=== PATIENT | male | born 1965 | race Caucasian/White ===

== ENCOUNTER 2018-04-19 07:37 | Inpatient (IN) | payer OTHER ==
[~2018-04-19] VITALS: Ht 185.4 cm; Wt 87.5 kg
--- NOTE | 2018-04-19 07:45 | NUR ---
[id number], [id number] FROM HOME C/O LOWER BACK PAIN WORSE ON THE LEFT RADIATING DOWN FRONT OF LEG GRADUALLY WORSENING OVER LAST 3 DAYS; DENIES TRAUMA. RR IS EVEN AND UNLABORED WITH NAD NOTED. SKIN IS SKIN WARM AND DRY. FEBRILE TEMP OF 102.8. DR ARAUJO AT FOR EVAL.
[2018-04-19] MEDS ORDERED: MORPHINE SULFATE INJ 4 MG/ML DISP.SYRIN ONE (07:50)
[2018-04-19] MEDS ORDERED: ONDANSETRON HCL/PF 4 MG/2 ML VIAL ONE (07:50)
[2018-04-19] MEDS ORDERED: KETOROLAC TROMETHAMINE INJ 30 MG/ML VIAL ONE (07:51)
[2018-04-19] MEDS ORDERED: ACETAMINOPHEN ES 500 MG TABLET ONE (07:51)
[2018-04-19] MEDS ORDERED: ACETAMINOPHEN ES 500 MG TABLET PO ONE (08:00)
[2018-04-19] MEDS ORDERED: KETOROLAC TROMETHAMINE INJ 30 MG/ML VIAL IV ONE (08:00)
[2018-04-19] MEDS ORDERED: MORPHINE SULFATE INJ 2 MG/ML DISP.SYRIN IV ONE (08:00)
[2018-04-19] MEDS ORDERED: IV NS 0.9% 1,000 ML BAG IV ONE ×2 (08:00→09:00)
[2018-04-19 08:24] LABS: APPEARANCE,URINE SL CLOUDY (CLEAR); BILIRUBIN,URINE 1+ (NEGATIVE); BLOOD, URINE NEGATIVE Ery/uL (NEGATIVE); COLOR,URINE DARK YELLO (YELLOW); KETONES,URINE NEGATIVE (NEGATIVE); LEUKOCYTE ESTERASE ,URINE NEGATIVE (NEGATIVE); NITRITE, URINE NEGATIVE (NEGATIVE); PROTEIN,URINE 1+ mg/dl (NEGATIVE); UGLUCOSE NEGATIVE (NEGATIVE); UROBILINOGEN,URINE 0.2 EU/dL (0.2)
[2018-04-19 08:27] LABS: INR 0.97 (0.87-1.13)
[2018-04-19 08:29] LABS: BASOPHILS % (AUTO) 0.1 % (0.0-2.0); EOSINOPHILS % (AUTO) 0.2 % (0.0-6.0); HEMATOCRIT 45 % (39-51); HEMOGLOBIN 15.8 g/dL (13.5-17.5); LYMPHOCYTES # (AUTO) 1.3 /CMM (0.8-4.8); LYMPHOCYTES % (AUTO) 9.8 % (20.0-44.0); MEAN CORPUSCULAR HEMOGLOBIN 31 PG (26.0-33.0); MEAN CORPUSCULAR HGB CONC 35 g/dl (31.0-36.0); MEAN CORPUSCULAR VOLUME 89 fL (80-96); MONOCYTES # (AUTO) 0.8 /CMM (0.1-1.30); MONOCYTES % (AUTO) 6.5 % (2.0-12.0); NEUTROPHILS # (AUTO) 10.7 /CMM (1.8-8.9); NEUTROPHILS % (AUTO) 83.4 % (43.0-81.0); PLATELET COUNT (AUTO) 239 /CMM (150-450); RDW COEFFICIENT OF VARIATION 12.3 (11.5-15.0); RED BLOOD CELL COUNT(AUTO) 5.06 MIL/uL (4.5-6.0); WHITE BLOOD COUNT (AUTO) 12.8 K/uL (4.3-11.0)
[2018-04-19 08:30] LABS: CALCIUM, SERUM 9.1 mg/dL (8.5-10.1); CREATININE 1.2 mg/dL (0.6-1.3); POTASSIUM 3.7 mmol/L (3.5-5.1)
[2018-04-19 08:37] LABS: ALBUMIN 3.5 g/dL (3.4-5.0); BILIRUBIN,DIRECT 0.1 mg/dL (0.0-0.2); BILIRUBIN,TOTAL 0.7 mg/dL (0.2-1.0)
[2018-04-19 08:42] LABS: RBC,URINE 0-2 /HPF (0-2)
[2018-04-19 08:43] LABS: BACTERIA,URINE Few /HPF (None Seen); MUCUS,URINE Few /LPF (None Seen); SQUAMOUS EPITHELIAL CELL,UR Rare /HPF (None Seen)
[2018-04-19] MEDS ORDERED: LORAZEPAM INJ 2 MG/ML VIAL IV ONE (09:00)
[2018-04-19] MEDS ORDERED: LORAZEPAM INJ 2 MG/ML VIAL ONE (09:21)
[2018-04-19] MEDS ORDERED: VALA500T36 PO (09:58)
--- NOTE | 2018-04-19 10:16 | NUR ---
PAGED EPIC -- COIL CONNECTOR IS DR KNOWLES.
[2018-04-19] MEDS ORDERED: PIPERACILLIN /TAZOBACTAM 3.375 G in IV D5W 50 ML IV ONE (10:30)
[2018-04-19] MEDS ORDERED: VANCOMYCIN 1 GM in IV D5W 250 ML IV ONE (10:30)
--- NOTE | 2018-04-19 10:45 | NUR ---
REPORT GIVEN TO FRANKY VALENTINE FOR MIRI MS 315-1
--- NOTE | 2018-04-19 11:30 | NUR ---
MSRN OPENING NOTES. PT RECEIVED A&0X3. PT TOLERATING ROOM AIR WITHOUT DISTRESS. PT REPORTING MUSCLE CRAMPS AND MODERATE PAIN TO L SCIATIC. PT A FEBRILE AT THIS TIME. PT WITH IVC AT L AC INTACT AND OPERATIONAL. PT BELONGINGS LIST CHECKED. SKIN INTACT. PT BED IN LOWEST LOCKED POSITION WITH HANDRAILSX2 AND CALL RODRIGUES WITHIN REACH. PT BRIEFED ON TODAY'S POC AND IS WITHOUT CONCERN OR COMPLAINT.
[2018-04-19] MEDS ORDERED: ONDANSETRON HCL/PF 4 MG/2 ML VIAL IVP PRN (12:00)
[2018-04-19] MEDS ORDERED: Z GUARD REMEDY 2 OZ OINT TP PRN (12:00)
[2018-04-19] MEDS ORDERED: MAG HYDROX/AL HYDROX/SIMETH 30 ML UDC PO PRN (12:00)
[2018-04-19] MEDS ORDERED: ZOLPIDEM TARTRATE 5 MG TABLET PO PRN (12:00)
[2018-04-19] MEDS ORDERED: MAGNESIUM HYDROXIDE 30 ML UDC PO PRN (12:00)
--- NOTE | 2018-04-19 12:00 | NUR ---
LOUISE NOTES. PT SIGNED CONSENT FOR INFORMATION RELEASE AND PAPER FAXED TO [facility].
[2018-04-19 12:42] VITALS: BP 118/73
[2018-04-19] MEDS: HYDROCODONE/APAP 5/325MG 1 EACH TABLET PO PRN (12:49)
[2018-04-19] MEDS: IV NS 0.9% 1,000 ML IV PRN (12:50)
[2018-04-19 13:00] LABS: IRON, SERUM 25 ug/dl (50-175); TOTAL IRON BINDING CAPACITY 291 ug/dl (250-450)
[2018-04-19 13:06] LABS: CHOLESTEROL 187 mg/dL (<200); HDL CHOLESTEROL 35 mg/dL (40-60); LDL 124 mg/dL (0-99); TRIGLYCERIDES 161 mg/dL (30-150)
[2018-04-19] MEDS ORDERED: BISACODYL (5 MG) 5 MG TABLET.DR PO PRN (14:00)
[2018-04-19] MEDS ORDERED: LORAZEPAM 0.5 MG TABLET PO PRN (14:00)
[2018-04-19] MEDS: POLYETHYLENE GLYCOL 3350 17 GM POWD.PACK PO SCH ×2 (14:00→21:55)
[2018-04-19] MEDS ORDERED: BISACODYL SUPP (10 MG) 10 MG/SUPP.RECT SUPP.RECT RC PRN (14:00)
[2018-04-19] MEDS: SENNOSIDES/DOCUSATE SODIUM 1 TAB TABLET PO SCH (14:00)
[2018-04-19 15:03] LABS: RETICULOCYTE COUNT 0.9 % (0.6-2.5)
[2018-04-19] MEDS: CYCLOBENZAPRINE 10 MG TABLET PO PRN (15:30)
--- NOTE | 2018-04-19 16:00 | NUR ---
MSRN NOTES. PT WITH MODERATE/SEVERE PAIN, WINDOWS SECURITY ANALYST ELENI REQUESTING MS 2MG PRN Q6, ORDERS PLACED.
--- NOTE | 2018-04-19 17:00 | NUR ---
MSRN NOTES. PT SHIVERING WITH TEMP 99.1, COOLING MEASURE IN PLACE.
[2018-04-19] MEDS: ACETAMINOPHEN 325 MG TABLET PO PRN (17:43)
[2018-04-19] MEDS: MORPHINE SULFATE INJ 2 MG/ML DISP.SYRIN IV PRN ×2 (17:43→18:09)
--- NOTE | 2018-04-19 18:44 | NUR ---
MSRN CLOSING NOTES.PT TOLERATING ROOM AIR WITHOUT DISTRESS, PT REPORTS CURRENT PAIN MANAGEMENT WITH PRN MS [place]. PT WITH COOLING MEASURES IN PLACE. PT NOW WITH IVC AT R HAND G#22 INTACTA ND OPERATIONAL WITH FLUIDS PER RX. PT BED IN LOWEST LOCKED POSITION WITH HANDRAILSX2 AND CALL RODRIGUES WITHIN REACH. ALL DAY NURSE DUTIES ATTENDED TO AND PT IS WITHOUT CONCERN OR COMPLAINT.
--- NOTE | 2018-04-19 19:20 | NUR ---
MS RN OPENING NOTES PT RECEIVED RESTING IN BED, A & O X 3, TOLERATING ROOM AIR WITHOUT DISTRESS. PT REPORTING MILD PAIN TO L SCIATICA & LEFT LEG. PT HAS TEMP OF 99.4 AT THIS TIME. PT REFUSES COOLING MEASURES @ THIS TIME. REMOVED EXTRA CLOTHING & BLANKETS. PT WITH IVF AT RIGHT HAND, INTACT AND OPERATIONAL RUNNING WITH NS ORDERED. SKIN INTACT. USES URINAL. PT BED IN LOWEST LOCKED POSITION WITH HANDRAILS X 2 AND CALL RODRIGUES WITHIN REACH. WILL MONITOR CLOSELY.
[2018-04-19 20:00] VITALS: BP 125/70
[2018-04-19] MEDS: FLUCONAZOLE (100 MG) 100 MG TABLET PO SCH (21:54)
[2018-04-19] MEDS: PIPERACILLIN /TAZOBACTAM 3.375 G in IV D5W 50 ML IV SCH (21:54)
[2018-04-19] MEDS: NYSTATIN (PYXIS) 500,000 UNIT/5 ML ORAL.SUSP PO SCH (21:54)
[2018-04-20] MEDS: ACETAMINOPHEN 325 MG TABLET PO PRN ×2 (00:11→06:14)
--- NOTE | 2018-04-20 00:11 | NUR ---
PRN TYLENOL GIVEN RECHECKED BODY TEMP, NOTED TO BE 102.1. REMOVED EXTRA CLOTHING, BLANKETS, ICE PACKS PROVIDED, COLD SPONGING STARTED. PRN TYLENOL GIVEN. DR OLIVAS ON THE FLOOR, MAKING ROUND, MADE MD AWARE. WILL MONITOR CLOSELY & RECHECK TEMP ACCORDINGLY.
--- NOTE | 2018-04-20 01:30 | NUR ---
RECHECKED BODY TEMP PT'S BODY TEMP NOTED TO BE 101 @ THIS TIME. COOLING MEASURES STILL IN PLACE. COLD SPONGING BEING DONE. MONITORING CLOSELY.
[2018-04-20] MEDS: MORPHINE SULFATE INJ 2 MG/ML DISP.SYRIN IV PRN ×2 (02:53→08:45)
[2018-04-20] MEDS: IV NS 0.9% 1,000 ML IV PRN ×2 (02:53→17:32)
--- NOTE | 2018-04-20 02:53 | NUR ---
PRN MORPHINE GIVEN PT HAD C/O PAIN TO LEFT LEG/HIP 06/18, REQUESTED TO TAKE MORPHINE @ THIS TIME. VSS. PRN MORPHINE GIVEN, WILL REASSESS FOR ASSESSMENT.
--- NOTE | 2018-04-20 03:00 | NUR ---
RECHECKED BODY TEMP BODY TEMP NOTED TO BE 99.1 @ THIS TIME. PT STATED HE FEELS BETTER @ THIS TIME. OBSERVING CLOSELY.
[2018-04-20] MEDS: PIPERACILLIN /TAZOBACTAM 3.375 G in IV D5W 50 ML IV SCH ×3 (06:10→17:29)
--- NOTE | 2018-04-20 06:14 | NUR ---
PRN TYLENOL GIVEN CHECKED BODY TEMP, 100.2, PRN TYLENOL GIVEN ORDERED. WILL RECHECK BODY TEMP & WILL ENDORSE TO AM RN TO F/U.
--- NOTE | 2018-04-20 06:55 | NUR ---
MS RN CLOSING NOTES PT IS RESTING IN BED, A & O X 3, TOLERATING ROOM AIR WITHOUT DISTRESS. PT REPORTING MODERATE PAIN TO LEFT HIP & LEG. MORPHINE WAS GIVEN ORDERED. BODY TEMP WAS 100.2, REMOVED EXTRA CLOTHING & BLANKETS, PRN TYLENOL WAS GIVEN. PT WITH IVF AT RIGHT HAND, INTACT AND OPERATIONAL RUNNING WITH NS ORDERED. SKIN INTACT. USES URINAL. PT BED IN LOWEST LOCKED POSITION WITH HANDRAILS X 2 AND CALL RODRIGUES WITHIN REACH. WILL ENDORSE TO AM RN FOR CONTINUITY OF CARE.
[2018-04-20 07:47] LABS: BASOPHILS % (AUTO) 0.2 % (0.0-2.0); EOSINOPHILS % (AUTO) 0.3 % (0.0-6.0); HEMATOCRIT 40 % (39-51); HEMOGLOBIN 13.7 g/dL (13.5-17.5); LYMPHOCYTES # (AUTO) 1.6 /CMM (0.8-4.8); LYMPHOCYTES % (AUTO) 15.2 % (20.0-44.0); MEAN CORPUSCULAR HEMOGLOBIN 30 PG (26.0-33.0); MEAN CORPUSCULAR HGB CONC 34 g/dl (31.0-36.0); MEAN CORPUSCULAR VOLUME 89 fL (80-96); MONOCYTES % (AUTO) 9.3 % (2.0-12.0); NEUTROPHILS # (AUTO) 8.1 /CMM (1.8-8.9); PLATELET COUNT (AUTO) 231 /CMM (150-450); RDW COEFFICIENT OF VARIATION 12.3 (11.5-15.0); RED BLOOD CELL COUNT(AUTO) 4.52 MIL/uL (4.5-6.0); WHITE BLOOD COUNT (AUTO) 10.7 K/uL (4.3-11.0)
[2018-04-20 07:48] LABS: CALCIUM, SERUM 8.5 mg/dL (8.5-10.1); CREATININE 0.9 mg/dL (0.6-1.3); MAGNESIUM 1.8 mg/dL (1.8-2.4); PHOSPHORUS 2.6 mg/dL (2.5-4.9); POTASSIUM 3.7 mmol/L (3.5-5.1)
--- NOTE | 2018-04-20 07:49 | NUR ---
MS RN OPENING NOTES RECEIVED PT LAYING IN BED WITH HOB ELEVATED, RESTING COMFORTABLY. PT IS EASILY AROUSABLE. RESPIRATIONS ARE EVEN AND UNLABORED, NOT IN ANY DISTRESS NOTED. PT DENIES ANY PAIN AT THIS TIME, NO C/O SOB, N/V. IV INTACT, NO INFILTRATION NOTED. DRESSING KEPT CLEAN AND DRY. SAFETY MEASURES ARE IN PLACE. INSTRUCTED PT TO USE CALL LIGHT WHEN ASSISTANCE IS NEEDED, CALL LIGHT IS LEFT WITHIN REACH. WILL CONTINUE TO MONITOR THROUGHOUT SHIFT FOR CONTINUITY OF CARE.
[2018-04-20 08:00] VITALS: BP 127/74
[2018-04-20] MEDS: NYSTATIN (PYXIS) 500,000 UNIT/5 ML ORAL.SUSP PO SCH ×3 (08:43→17:29)
[2018-04-20] MEDS: CYCLOBENZAPRINE 10 MG TABLET PO PRN (08:43)
[2018-04-20] MEDS: VALACYCLOVIR HCL 500 MG TABLET PO SCH (08:43)
[2018-04-20] MEDS: FLUCONAZOLE (100 MG) 100 MG TABLET PO SCH (08:43)
[2018-04-20] MEDS: SENNOSIDES/DOCUSATE SODIUM 1 TAB TABLET PO SCH (08:44)
[2018-04-20] MEDS: HYDROCODONE/APAP 5/325MG 1 EACH TABLET PO PRN (11:02)
[2018-04-20] MEDS: PANTOPRAZOLE 40 MG TABLET.DR PO SCH (13:48)
[2018-04-20] MEDS: GABAPENTIN 300 MG CAPSULE PO SCH ×2 (13:48→17:29)
[2018-04-20] MEDS: KETOROLAC TROMETHAMINE INJ 30 MG/ML VIAL IV PRN ×2 (13:49→19:30)
[2018-04-20 16:00] VITALS: BP 139/77
[2018-04-20] MEDS ORDERED: GADODIAMIDE 2.5 MMOL/5 ML VIAL IJ ONE (16:36)
[2018-04-20] MEDS: LACTOBACILLUS RHAMNOSUS GG 1 EACH CAP.SPRINK PO SCH (17:29)
--- NOTE | 2018-04-20 17:44 | NUR ---
MS RN NOTES DR. KNOWLES MADE AWARE OF MRI RESULTS.
--- NOTE | 2018-04-20 18:22 | NUR ---
Spoke with patient, he is alert and pleasant. He lives locally with his mother in the upper level [facility] that has no elevator access. He c/o progressive back pain and weakness to lower extremities. He recent started to use a walker with ambulation. He is still working at [employer] and he might need short medical leave. Patient was advised to contact his pcp if he need to file a disability due to his worsening condition. Patient plan to return home when discharge, he will arrange own ride when d/c. Addendum: 04/20/18 at 1823 by DUONG ELLISON RN Amended: Links added.
--- NOTE | 2018-04-20 18:38 | NUR ---
MS RN CLOSING NOTES ALL DUE MEDS GIVEN, NEEDS MET AND ANTICIPATED. PT REMAINS A/O X4, AFEBRILE. RESPIRATIONS ARE EVEN AND UNLABORED, NOT IN ANY ACUTE DISTRESS NOTED. PT'S PAIN HAS BEEN TOLERABLE SINCE TORADOL ADMINISTERED. IV SITE INTACT, FLUSHED AND NO INFILTRATION NOTED. IV FLUIDS INFUSING AND TOLERATING WELL. DRESSING KEPT CLEAN AND DRY. SAFETY MEASURES ARE IN PLACE. REMINDED PT TO USE CALL LIGHT WHEN ASSISTANCE IS NEEDED, CALL LIGHT IS LEFT WITHIN REACH. WILL ENDORSE TO NEXT SHIFT FOR CONTINUITY OF CARE.
--- NOTE | 2018-04-20 19:30 | NUR ---
MSRN FULLY AWAKE VERBALIZES LOW BACK PAIN AND LEFT LEG PAIN. TORADOL IVP ADMINISTERED ORDERED. VISITOR AT BEDSIDE. GOOD FAMILY SUPPORT. DISCUSSED TREATMENT PLAN AND MEDICATION REGIMEN, APPEARS TO UNDERSTAND. SAFETY PRECAUTIONS INSTRUCTED WELL UNDERSTOOD. CLOSELY WATCHED.
[2018-04-20 20:00] VITALS: BP 132/71
[2018-04-20] MEDS: POLYETHYLENE GLYCOL 3350 17 GM POWD.PACK PO SCH (21:23)
--- NOTE | 2018-04-20 21:54 | NUR ---
MSRN REFUSED MIRALAX FOR NOW. RESTING COMFORTABLY, CONTINUED MONITORING.
[2018-04-21] MEDS: PIPERACILLIN /TAZOBACTAM 3.375 G in IV D5W 50 ML IV SCH ×3 (00:40→12:01)
--- NOTE | 2018-04-21 02:42 | NUR ---
MSRN SLEEPING APPEARS COMFORTABLE.
[2018-04-21] MEDS: KETOROLAC TROMETHAMINE INJ 30 MG/ML VIAL IV PRN ×2 (05:34→13:45)
--- NOTE | 2018-04-21 05:35 | NUR ---
MSRN VERBALIZES LEFT HIP TO LEG PAIN, TORADOL 30MG IVP ADMIISTERED. HAS LOW GRADE TEMP 99.4. ENCOURAGED FLUID INTAKE. WILL MONITOR TEMP
[2018-04-21] MEDS: CYCLOBENZAPRINE 10 MG TABLET PO PRN ×3 (06:47→22:12)
--- NOTE | 2018-04-21 07:01 | NUR ---
MSRN FLEXIRIL 10 MG PO ADMINISTERED MUSCLE RELAXANT. ZOSYN INFUSING. LABS DRAWN
--- NOTE | 2018-04-21 07:28 | NUR ---
MS RN OPENING NOTES RECEIVED PT LAYING IN BED WITH HOB ELEVATED, RESTING COMFORTABLY. PT IS AWAKE AND RESPONSIVE. RESPIRATIONS ARE EVEN AND UNLABORED, NOT IN ANY DISTRESS NOTED. PT C/O PAIN TO LEFT HIP BUT IS TOLERABLE. NO C/O SOB, N/V. IV INTACT, NO INFILTRATION NOTED. DRESSING KEPT CLEAN AND DRY. SAFETY MEASURES ARE IN PLACE. INSTRUCTED PT TO USE CALL LIGHT WHEN ASSISTANCE IS NEEDED, CALL LIGHT IS LEFT WITHIN REACH. WILL CONTINUE TO MONITOR THROUGHOUT SHIFT FOR CONTINUITY OF CARE.
[2018-04-21 07:32] LABS: BASOPHILS % (AUTO) 0.3 % (0.0-2.0); EOSINOPHILS % (AUTO) 1.4 % (0.0-6.0); HEMATOCRIT 37 % (39-51); HEMOGLOBIN 12.8 g/dL (13.5-17.5); LYMPHOCYTES # (AUTO) 1.6 /CMM (0.8-4.8); LYMPHOCYTES % (AUTO) 17.2 % (20.0-44.0); MEAN CORPUSCULAR HEMOGLOBIN 31 PG (26.0-33.0); MEAN CORPUSCULAR HGB CONC 35 g/dl (31.0-36.0); MEAN CORPUSCULAR VOLUME 88 fL (80-96); MONOCYTES # (AUTO) 0.5 /CMM (0.1-1.30); MONOCYTES % (AUTO) 5.9 % (2.0-12.0); NEUTROPHILS # (AUTO) 6.9 /CMM (1.8-8.9); NEUTROPHILS % (AUTO) 75.2 % (43.0-81.0); PLATELET COUNT (AUTO) 258 /CMM (150-450); RDW COEFFICIENT OF VARIATION 12.8 (11.5-15.0); RED BLOOD CELL COUNT(AUTO) 4.19 MIL/uL (4.5-6.0); WHITE BLOOD COUNT (AUTO) 9.1 K/uL (4.3-11.0)
[2018-04-21 08:00] VITALS: BP 118/81
[2018-04-21 08:05] LABS: CALCIUM, SERUM 8.6 mg/dL (8.5-10.1); CREATININE 0.9 mg/dL (0.6-1.3); PHOSPHORUS 3.1 mg/dL (2.5-4.9); POTASSIUM 3.9 mmol/L (3.5-5.1)
[2018-04-21] MEDS: FLUCONAZOLE (100 MG) 100 MG TABLET PO SCH (08:38)
[2018-04-21] MEDS: NYSTATIN (PYXIS) 500,000 UNIT/5 ML ORAL.SUSP PO SCH ×3 (08:38→16:42)
[2018-04-21] MEDS: LACTOBACILLUS RHAMNOSUS GG 1 EACH CAP.SPRINK PO SCH ×2 (08:38→16:42)
[2018-04-21] MEDS: PANTOPRAZOLE 40 MG TABLET.DR PO SCH (08:38)
[2018-04-21] MEDS: GABAPENTIN 300 MG CAPSULE PO SCH ×3 (08:38→16:42)
[2018-04-21] MEDS: SENNOSIDES/DOCUSATE SODIUM 1 TAB TABLET PO SCH (08:38)
[2018-04-21] MEDS: VALACYCLOVIR HCL 500 MG TABLET PO SCH (08:38)
[2018-04-21 09:00] VITALS: BP 118/81
[2018-04-21] MEDS: DIAZEPAM 5 MG TABLET PO PRN ×2 (09:17→22:16)
--- NOTE | 2018-04-21 13:21 | NUR ---
MS RN NOTES PT SEEN AND EXAMINED BY DR. KNOWLES.
[2018-04-21 16:00] VITALS: BP 122/73
[2018-04-21] MEDS: MEROPENEM 1 G in IV NS 0.9% 100 ML IV SCH ×2 (16:31→21:09)
--- NOTE | 2018-04-21 16:35 | NUR ---
MS RN NOTES PHARMACY DELIVERED MERREM VIA D[facility]. MEDICATION ADMINISTERED.
--- NOTE | 2018-04-21 17:48 | NUR ---
MS RN NOTES CALLED RADIOLOGY AND STATED THAT THE SOONEST THE PT CAN GET THE US GUIDED NEEDLE BIOPSY DONE IS ON MONDAY. NOTIFIED DR. KNOWLES, PER DR. KNOWLES "I KNOW, I CALLED MYSELF." PT MADE AWARE AND AGREED.
--- NOTE | 2018-04-21 18:29 | NUR ---
MS RN CLOSING NOTES ALL DUE MEDS GIVEN, NEEDS MET AND ANTICIPATED. PT REMAINS A/O X4, AFEBRILE. RESPIRATIONS ARE EVEN AND UNLABORED, NOT IN ANY ACUTE DISTRESS NOTED. PT'S PAIN HAS BEEN TOLERABLE NO C/O SOB, N/V. IV SITE INTACT, FLUSHED AND NO INFILTRATION NOTED. DRESSING KEPT CLEAN AND DRY. SAFETY MEASURES ARE IN PLACE. REMINDED PT TO USE CALL LIGHT WHEN ASSISTANCE IS NEEDED, CALL LIGHT IS LEFT WITHIN REACH. WILL ENDORSE TO NEXT SHIFT FOR CONTINUITY OF CARE.
[2018-04-21 20:00] VITALS: BP 123/77
--- NOTE | 2018-04-21 20:00 | NUR ---
MS SHIRAZ INITIAL NOTES RECEIVED PT IN BED AWAKE AND ALERT WATCHING TV AT THIS TIME. DENIES ANY PAIN OR ANY DISCOMFORT. AWARE OF HIS PROCEDURE ON MONDAY. BREATHING EVEN AND NON LABORED . NOT IN ANY ACUTE DISTRESS NOTED. VITAL SIGNS WITHIN NORMAL LIMIT. KEPT HIM WARM AND COMFORTABLE AT ALL TIMES. WILL CONTINUE TO MONITOR. PLACE CALL LIGHT AT REACH.
[2018-04-21] MEDS: POLYETHYLENE GLYCOL 3350 17 GM POWD.PACK PO SCH (22:11)
--- NOTE | 2018-04-21 22:15 | NUR ---
MS MEDICAL RECORD RETRIEVAL SPECIALIST NOTES PT CALLED AND COMPLAINED OF MUSCLE SPASM AND FEELING ANXIETY . FLEXERIL PO GIVEN WELL HIS VALIUM PER PT REQUESTED. EDUCATE PT FOR POSSIBEL SIDE EFFECT AND PT UNDERSTOOD WELL. MERREM IVP BAG HUNG BY ANOTHER NURSE ORDERED. WILL CONTINUE MONITORING.
--- NOTE | 2018-04-22 | NUR ---
MS TRAVEL WRITER NOTES PT SLEEPING AT THIS TIME WITHOUT ANY ACUTE DISTRESS NOTED. BREATHING EVEN AND NON-LABORED. WILL CONTINUE MONITORING. PLACE CALL LIGHT AT REACH.
[2018-04-22] MEDS: MEROPENEM 1 G in IV NS 0.9% 100 ML IV SCH ×3 (04:56→20:23)
[2018-04-22] MEDS: KETOROLAC TROMETHAMINE INJ 30 MG/ML VIAL IV PRN ×3 (04:56→18:50)
--- NOTE | 2018-04-22 04:56 | NUR ---
PRN TORADOL: PT C/O LOWER BACK REQUESTING FOR TORADOL, PRN TORADOL ADMINISTERED AT THIS TIME, WILL CONTINUE TO MONITOR AND REASSESS
--- NOTE | 2018-04-22 07:24 | NUR ---
MS HAND GLUER AND SLICER CLOSING NOTES PT AWAKE AND ALERT WATCHING TV AT THIS TIME. SLEPT WELL AND STABLE VIANEY THE NIGHT. ALL DUE MEDS GIVEN AND ALL NEEDS MET. IVF INFUSING TKO PER PT REQUESTED TO KEEP OPEN THE LINE. KEPT HIM WARM AND COMFORTABLE AT ALL TIMES. PLACE CALL LIGHT AT REACH. ENDORSE TO AM NURSE FOR CONTINUITY OF CARE.
[2018-04-22 08:00] VITALS: BP 126/82
[2018-04-22] MEDS: PANTOPRAZOLE 40 MG TABLET.DR PO SCH (08:22)
[2018-04-22] MEDS: LACTOBACILLUS RHAMNOSUS GG 1 EACH CAP.SPRINK PO SCH ×2 (08:23→16:38)
[2018-04-22] MEDS: GABAPENTIN 300 MG CAPSULE PO SCH ×3 (08:23→16:38)
[2018-04-22] MEDS: FLUCONAZOLE (100 MG) 100 MG TABLET PO SCH (08:23)
[2018-04-22] MEDS: VALACYCLOVIR HCL 500 MG TABLET PO SCH (08:24)
[2018-04-22] MEDS: NYSTATIN (PYXIS) 500,000 UNIT/5 ML ORAL.SUSP PO SCH ×4 (08:24→16:38)
[2018-04-22 08:40] LABS: CALCIUM, SERUM 8.8 mg/dL (8.5-10.1); PHOSPHORUS 3.3 mg/dL (2.5-4.9); POTASSIUM 3.8 mmol/L (3.5-5.1)
[2018-04-22 08:49] LABS: HEMATOCRIT 39 % (39-51); HEMOGLOBIN 13.2 g/dL (13.5-17.5); LYMPHOCYTES % (AUTO) 22.9 % (20.0-44.0); MEAN CORPUSCULAR HEMOGLOBIN 30 PG (26.0-33.0); MEAN CORPUSCULAR HGB CONC 34 g/dl (31.0-36.0); MEAN CORPUSCULAR VOLUME 89 fL (80-96); NEUTROPHILS % (AUTO) 67.3 % (43.0-81.0); PLATELET COUNT (AUTO) 315 /CMM (150-450); RDW COEFFICIENT OF VARIATION 13.7 (11.5-15.0); RED BLOOD CELL COUNT(AUTO) 4.37 MIL/uL (4.5-6.0)
[2018-04-22 08:50] LABS: BASOPHILS % (AUTO) 0.8 % (0.0-2.0)
[2018-04-22] MEDS: SENNOSIDES/DOCUSATE SODIUM 1 TAB TABLET PO SCH (09:00)
[2018-04-22 10:03] VITALS: BP 139/82
--- NOTE | 2018-04-22 10:40 | NUR ---
PATIENT STATES THAT PAIN HAS DECREASED TO MILD PAIN OF 3/10 ON LOWER BACK, PATIENT STATES THAT IT WAS ALLEVIATED BY TORADOL AND TURING AND REPOSITIONING
--- NOTE | 2018-04-22 11:16 | NUR ---
RN NOTES: PATIENT REFUSED SENOKOT. BENEFITS AND RISKS EXPLAINED. PATIENT DENYING CONSTIPATION
[2018-04-22 16:00] VITALS: BP 136/83
--- NOTE | 2018-04-22 17:23 | NUR ---
PATIENT REFUSING IV INSERTION CURRENT IV ON RIGHT HAND PATENT AND INTACT. PATIENT COMPLAINING OF SLIGHT DISCOMFORT AT IV INSERTION SITE BENEFITS AND RISKS EXPLAINED AT LENGTH EDUCATED PATIENT ABOUT INFECTION CONTROL. PATIENT STILL REFUSED
--- NOTE | 2018-04-22 19:00 | NUR ---
PER RADIOLOGY - ULTRASOUND NEEDLE BIOPSY TO BE DONE TOMORROW
--- NOTE | 2018-04-22 19:20 | NUR ---
RN CLOSING NOTES: PATIENT RESTING IN BED. NONLABORED BREATHING NOTED ON ROOM AIR, STATING THAT PAIN IS SLOWLY DECREASING AFTER TORADOL ADMINISTRATION. FREQUENT NEURO CHECKS DONE -SEE INTERVENTIONS. IV SITE ON RIGHT HAND PATENT AND INTACT. FALL PRECAUTIONS IMPLEMENTED. BED IN LOWEST LOCKED POSITION. CALL LIGHT WITHIN REACH. ENDORSED TO NEXT SHIFT
--- NOTE | 2018-04-22 19:30 | NUR ---
RN MS OPENING NOTES RECEIVED PATIENT IN BED, AWAKE AND ALERT AND ORIENTED X 4 ABLE TO MAKE NEEDS KNOWN, DENIES ANY PAIN OR DISCOMFORT, RESPIRATIONS EVEN AND UNLABORED, WITH EQUAL RISE AND FALL OF CHEST. IV SITE TO RIGHT HAND #22 GAUGE INTACT AND PATENT , NO REDNESS , NO INFILTRATION PRESENT AT THIS TIME, PER PATIENT AT TIMES IV SITE CAN BE UNCOMFORTABLE, MADE AWARE IF ANY FURTHER CHANGES ARE NOTED MIGHT NEED TO REPLACE IV SITE. VERBALIZE HE UNDERSTANDS. PATIENT MADE AWARE OF NPO STATUS AT MIDNIGHT. PATIENT REQUESTING FOR SHOWER, PER MD ORDER PER ID IN PLACE, OKAY TO SHOWER , WILL CONTINUE TO FOLLOW UP AND PROVIDE ASSISTANCE, ORIENTED TO STAFF AND CALL LIGHT, CALL LIGHT KEPT WITHIN REACH , SAFETY PRECAUTIONS RENDERED, FLUIDS OFFERED TOLERATED, REMAINS COMFORTABLE AT THIS TIME, ALL NEEDS ATTENDED , WILL CONTINUE TO MONITOR.
[2018-04-22 20:00] VITALS: BP 128/71
--- NOTE | 2018-04-22 20:45 | NUR ---
RN MS NOTES PATIENT TAKEN TO SHOWER WITH ASSISTANCE IN STABLE CONDITION.
--- NOTE | 2018-04-22 21:00 | NUR ---
RN MS NOTES PATIENT BACK FROM SHOWER IN BED, SAFE AND IN STABLE CONDITION.
[2018-04-22] MEDS: POLYETHYLENE GLYCOL 3350 17 GM POWD.PACK PO SCH (21:09)
--- NOTE | 2018-04-22 21:09 | NUR ---
RN MS NOTES PATIENT REFUSED MIRALAX STATES " I GET DIARRHEA, I MADE A MESS YESTERDAY, IM GOING TO THE BR FINE".
[2018-04-23] MEDS: MEROPENEM 1 G in IV NS 0.9% 100 ML IV SCH ×3 (04:04→20:42)
--- NOTE | 2018-04-23 06:43 | NUR ---
franky clemons notes patient in bed awake alert and oriented x 4 able to make needs known, respirations even and unlabored, denies pain or discomfort at this time, iv site intact and patent, no redness no infiltration , iv site to right wrist #22. fluids offered urinal at bedside, all needs attended at this time, remains npo status , call light kept within reach, will continue to monitor and endorse to next shift. Addendum: 04/23/18 at 3882 by JER HERNANDEZ RN FRANKY CLEMONS CLOSING NOTES
--- NOTE | 2018-04-23 07:30 | NUR ---
PT RECEIVED RESTING COMFORTABLY IN BED WITH EYES CLOSED. NO S/S OR C/O PAIN OR DISTRESS NOTED. SIDE RAILS UP X2, CALL LIGHT LEFT WITHIN REACH. WILL CONTINUE PLAN OF CARE.
[2018-04-23 07:32] LABS: CREATININE 0.9 mg/dL (0.6-1.3); MAGNESIUM 2.1 mg/dL (1.8-2.4); PHOSPHORUS 3.3 mg/dL (2.5-4.9); POTASSIUM 4.2 mmol/L (3.5-5.1)
[2018-04-23 07:38] LABS: INR 0.98 (0.87-1.13)
[2018-04-23 07:46] LABS: BASOPHILS % (AUTO) 0.7 % (0.0-2.0); EOSINOPHILS % (AUTO) 6.8 % (0.0-6.0); HEMATOCRIT 40 % (39-51); LYMPHOCYTES # (AUTO) 1.5 /CMM (0.8-4.8); LYMPHOCYTES % (AUTO) 25.9 % (20.0-44.0); MEAN CORPUSCULAR HEMOGLOBIN 31 PG (26.0-33.0); MEAN CORPUSCULAR HGB CONC 35 g/dl (31.0-36.0); MEAN CORPUSCULAR VOLUME 89 fL (80-96); MONOCYTES # (AUTO) 0.3 /CMM (0.1-1.30); MONOCYTES % (AUTO) 5.8 % (2.0-12.0); NEUTROPHILS # (AUTO) 3.4 /CMM (1.8-8.9); NEUTROPHILS % (AUTO) 60.8 % (43.0-81.0); PLATELET COUNT (AUTO) 356 /CMM (150-450); RDW COEFFICIENT OF VARIATION 12.6 (11.5-15.0); RED BLOOD CELL COUNT(AUTO) 4.51 MIL/uL (4.5-6.0); WHITE BLOOD COUNT (AUTO) 5.6 K/uL (4.3-11.0)
[2018-04-23] MEDS: KETOROLAC TROMETHAMINE INJ 30 MG/ML VIAL IV PRN ×2 (08:03→20:17)
[2018-04-23 08:23] VITALS: BP 129/75
[2018-04-23] MEDS: SENNOSIDES/DOCUSATE SODIUM 1 TAB TABLET PO SCH (09:00)
[2018-04-23] MEDS: GABAPENTIN 300 MG CAPSULE PO SCH ×3 (09:38→16:46)
[2018-04-23] MEDS: PANTOPRAZOLE 40 MG TABLET.DR PO SCH (09:38)
[2018-04-23] MEDS: FLUCONAZOLE (100 MG) 100 MG TABLET PO SCH (09:38)
[2018-04-23] MEDS: VALACYCLOVIR HCL 500 MG TABLET PO SCH (09:39)
[2018-04-23] MEDS: LACTOBACILLUS RHAMNOSUS GG 1 EACH CAP.SPRINK PO SCH ×2 (09:39→16:47)
[2018-04-23] MEDS: NYSTATIN (PYXIS) 500,000 UNIT/5 ML ORAL.SUSP PO SCH ×3 (09:39→16:47)
--- NOTE | 2018-04-23 13:25 | NUR ---
regarding the procedure i spoke with the RN , at 9 am and 12 am, that the ordering doctor needs to talk with the radiologist regarding the procedure, the radiologist attempt to find the ordering doctor , no answer, procedure pending at 1.30 pm
[2018-04-23] MEDS: DIAZEPAM 5 MG TABLET PO PRN (14:49)
[2018-04-23 16:25] VITALS: BP 140/88
--- NOTE | 2018-04-23 18:25 | NUR ---
CHANGE OF SHIFT REPORT PT RESTING COMFORTABLY IN BED. NO S/S OR C/O PAIN OR DISTRESS NOTED. SIDE RAILS UP X2, CALL LIGHT LEFT WITHIN REACH. PT KEPT CLEAN, DRY, AND COMFORTABLE. NO SIGNIFICANT CHANGES SINCE PREVIOUS SHIFT. WILL GIVE REPORT TO INESSA WILKINS.
--- NOTE | 2018-04-23 19:10 | NUR ---
RN INITIAL NOTES: Patient received in bed, alert, oriented x 4. Family at bedside. Not in any distress. IV on R) hand g#22 intact and patent, no signs of infiltration. Call choi within reach. Bed in low locked position. Patient stable as endorsed by the morning shift RN.
[2018-04-23 20:00] VITALS: BP 135/90
[2018-04-23 20:01] VITALS: BP 135/90
[2018-04-23] MEDS: POLYETHYLENE GLYCOL 3350 17 GM POWD.PACK PO SCH (21:07)
[2018-04-24] MEDS: ACETAMINOPHEN 325 MG TABLET PO PRN (04:12)
[2018-04-24] MEDS: MEROPENEM 1 G in IV NS 0.9% 100 ML IV SCH ×3 (04:12→17:00)
--- NOTE | 2018-04-24 04:14 | NUR ---
RN NOTES: Patient complaining of headache, tylenol given as ordered
--- NOTE | 2018-04-24 05:48 | NUR ---
MS RN CLOSING NOTES: Patient in bed, sleeping but easily arousable. Alert, oriented x 4. No complaints of pain or discomfort a of this time. Safety measures in place. All needs attended to. All due medications given as ordered. Will endorse MIRI to morning shift RN.
--- NOTE | 2018-04-24 07:30 | NUR ---
RN MS NOTES PT IN BED, AWAKE, ALERT AND ORIENTED, NO COMPLAINT OF PAIN AT THIS TIME, RESPIRATIONS NORMAL, CALL LIGHT WITHIN REACH, IV SITE AT RIGHT WRIST INTACT AND PATENT, PLAN OF CARE DISCUSSED WITH PT, VERBALIZED UNDERSTANDING, NEEDS ATTENDED.
[2018-04-24 08:21] VITALS: BP 118/69
[2018-04-24] MEDS: NYSTATIN (PYXIS) 500,000 UNIT/5 ML ORAL.SUSP PO SCH ×3 (09:20→17:08)
[2018-04-24] MEDS: PANTOPRAZOLE 40 MG TABLET.DR PO SCH (09:20)
[2018-04-24] MEDS: LACTOBACILLUS RHAMNOSUS GG 1 EACH CAP.SPRINK PO SCH ×2 (09:21→17:08)
[2018-04-24] MEDS: FLUCONAZOLE (100 MG) 100 MG TABLET PO SCH (09:21)
[2018-04-24] MEDS: VALACYCLOVIR HCL 500 MG TABLET PO SCH (09:21)
[2018-04-24] MEDS: SENNOSIDES/DOCUSATE SODIUM 1 TAB TABLET PO SCH (09:21)
[2018-04-24] MEDS: GABAPENTIN 300 MG CAPSULE PO SCH ×3 (09:21→17:08)
[2018-04-24] MEDS: KETOROLAC TROMETHAMINE INJ 30 MG/ML VIAL IV PRN (09:38)
[2018-04-24 15:56] VITALS: BP 134/78
--- NOTE | 2018-04-24 16:20 | NUR ---
RN MS NOTES - MERREM IV ADMINISTRATION PT FOR DISCHARGE TODAY, WOUND LIKE TO GO HOME NOW, IV ATB TO CONTINUE AT HOME WITH HOME HEALTH TO START TOMORROW, PT CANNOT WAIT FOR THE NEXT DOSE, PER DASIA MINOR, OK TO GIVE TONIGHT'S DOSE NOW.
--- NOTE | 2018-04-24 18:00 | NUR ---
RN MS NOTES PT IN BED, AWAKE, ALERT AND ORIENTED, NOT IN DISTRESS, DISCHARGE ORDER GIVEN BY DASIA FINANCIAL OPERATIONS ANALYST, DISCHARGE AND MEDICATION INSTRUCTIONS PROVIDED TO PT, VERBALIZED UNDERSTANDING, NEW PICC LINE PLACED AT LEFT UPPER ARM, VERIFIED PLACEMENT THROUGH CHEST XR, BELONGINGS ACCOUNTED FOR, ASSISTED TO HOSPITAL LOBBY BY SALES SPECIALIST, LEFT WITH HIS FRIEND IN STABLE CONDITION.
== END 2018-04-24 18:00 | disposition home health service (06) | DRG 872 ==
LOC: ER 07:39 → MED 10:36
PROVIDERS: ADMIT Internal Medicine; ATTEND Internal Medicine
PROC: B548ZZA Ultrasonography of Superior Vena Cava, Guidance (ICD-10-PCS; principal; 2018-04-24)
PROC: 02HV33Z Insertion of Infusion Device into Superior Vena Cava, Percutaneous Approach (ICD-10-PCS; principal; 2018-04-24)
DX: A41.9 Sepsis, unspecified organism (principal); B37.0 Candidal stomatitis; N39.0 Urinary tract infection, site not specified; E87.2 Acidosis; E86.0 Dehydration; M54.30 Sciatica, unspecified side; E78.5 Hyperlipidemia, unspecified; Z87.440 Personal history of urinary (tract) infections; M47.26 Other spondylosis with radiculopathy, lumbar region; M48.061 Spinal stenosis, lumbar region without neurogenic claudication; M46.96 Unspecified inflammatory spondylopathy, lumbar region; M43.16 Spondylolisthesis, lumbar region; B96.20 Unspecified Escherichia coli [E. coli] as the cause of diseases classified elsewhere; B96.89 Other specified bacterial agents as the cause of diseases classified elsewhere; B95.1 Streptococcus, group B, as the cause of diseases classified elsewhere; M46.56 Other infective spondylopathies, lumbar region; G89.29 Other chronic pain; Z16.12 Extended spectrum beta lactamase (ESBL) resistance
CPT/HCPCS: 36415; 71045-TC; 72158-TC; 80048-TC; 80061-TC; 80076-TC; 81000-TC; 82550-TC; 83540-TC; 83605-TC; 83615-TC; 83690-TC; 83735-TC; 84100-TC; 84484-TC; 85025-TC; 85045-TC; 85610-TC; 85652-TC; 85730-TC; 86140-TC; 87040-TC; 87081-TC; 87086-TC; 87186-TC; 87207-TC; A4606; C1751; J1885; J2060; J2185; J2270; J2405; J2543; J3370; J7030; J7040; J7060; Z7610